=== PATIENT | female | born 1945 | race Caucasian/White ===

== ENCOUNTER 2017-02-27 09:50 | Day surgery (SDC) | payer MEDICARE, OTHER ==
[2017-02-23 12:59] LABS: HEMATOCRIT 39.6 % (36.0-48.0); HEMOGLOBIN 13.1 g/dL (12.0-16.0)
[2017-02-23 13:28] LABS: A/G RATIO 1.2 (0.7-1.9); ALBUMIN 3.9 G/DL (3.5-5.0); CALCIUM, SERUM 9.6 MG/DL (8.5-10.4); CHLORIDE, SERUM 106 MMOL/L (96-112); CO2 (CARBON DIOXIDE) 27 MMOL/L (24-34); CREATININE 0.88 MG/DL (0.55-1.02); GFR AFRICAN AMERICAN 77 ML/MIN (>=60); GFR NON AFRICAN AMERICAN 66 ML/MIN (>=60); GLOBULIN 3.2 G/DL (2.5-4.1); GLUCOSE, SERUM 96 MG/DL (60-99); POTASSIUM, SERUM 4.4 MMOL/L (3.5-5.3); SGOT(AST) 24 U/L (5-40); SGPT(ALT) 40 U/L (5-65); SODIUM, SERUM 140 MMOL/L (135-148); TOTAL BILIRUBIN 0.6 MG/DL (0-1.2); TOTAL PROTEIN 7.1 G/DL (6.0-8.5)
[2017-02-23 13:29] LABS: ALKALINE PHOSPHATASE 96 U/L (45-117); BUN (BLOOD UREA NITROGEN) 12 MG/DL (6-23)
--- NOTE | ~2017-02-27 | OP ---
Record Of Operation [facility] [address] [place]. [address] NAME: MARLEE ENGLAND : 45 STATUS : [facility]#: [id number] AGE: 71 ADM/REG DATE : 02/27/17 MR#: [id number] REPORT SERV DATE: 03/02/17 DICTATED BY: HARPREET QUARLES DATE: 03/01/17 REPORT STATUS : Draft TRANSCRIBED BY: MODL DATE: 03/01/17 DATE OF PROCEDURE: 02/27/2017 PREOPERATIVE DIAGNOSES: 1. Cholelithiasis. 2. Acute cholecystitis. 3. Biliary pancreatitis. SURGEON: Dr. Harpreet Quarles. RESIDENT SURGEON: Dr. Cisco Jansen. PROCEDURE: Laparoscopic cholecystectomy with intraoperative cholangiogram. ANESTHESIA: General. COMPLICATIONS: None. FLUID: Approximately 1 L. BLOOD LOSS: 10 mL. FINDINGS: Intraoperative cholangiogram showed ductal filling with no defects present and retrograde filling into the left and right hepatic duct. DESCRIPTION OF OPERATION: After informed consent was obtained, the patient was brought back to the operating suite and placed in the supine position. The patient was prepped and draped in normal sterile fashion after general endotracheal anesthesia. A transverse incision was made at the umbilicus. A 10-mm trocar with Optiview technique was used to gain access to the abdomen. The abdomen was insufflated. The patient tolerated the insufflation well. The camera was placed. There was no bleeding or damage to bowel or bladder. Three more 5-mm trocars were placed, one in subxiphoid, one in subcostal, and one in the right lower quadrant. The patient was placed in reverse Trendelenburg with left-side down. The gallbladder was grasped and elevated cranially and laterally. Adhesions of the omentum to the peritoneum and the gallbladder were dissected free sharply. The infundibulum of the gallbladder was then grasped and retracted laterally. A combination of sharp and blunt dissection were used to dissect out the cystic duct and cystic artery. Once the cystic duct was dissected free, was placed on the cystic duct at the cyst duct infundibular junction. A ductotomy was performed with Endoscissors. The duct was milked and one 2-mm stone was extracted. A cholangiocatheter was then placed within the cystic duct and under direct fluoroscopic visualization, a cholangiogram was performed. The cholangiogram showed no filling defects within the common bile duct all the way down to the duodenum. The duodenum filled well filling within the pancreatic duct. No stones were identified. The cholangiocatheter was then removed. The cystic duct was doubly clipped and divided. Cystic artery was doubly clipped and divided. Gallbladder was removed from the gallbladder fossa with hook electrocautery. Hemostasis was obtained. Record Of Operation [facility] [id number] [place]. [address] NAME: MARLEE ENGLAND : 45 STATUS : [facility]#: [id number] AGE: 71 ADM/REG DATE : 02/27/17 MR#: [id number] REPORT SERV DATE: 03/02/17 DICTATED BY: HARPREET QUARLES DATE: 03/01/17 REPORT STATUS : Draft TRANSCRIBED BY: ALONSO DATE: 03/01/17 Gallbladder was removed from the abdomen through the subxiphoid 10-mm trocar and the gallbladder fossa was visualized. There was no bleeding or bile. The remaining of the trocars were removed under direct visualization. The abdomen insufflation was released. The incisions were closed with 4-0 Monocryl. The patient tolerated the procedure well and transferred to recovery in stable condition. DICTATED BY: Cisco Jansen MD CB/ALONSO Harpreet Quarles M.D. / [id number] CC: Miles Glasgow M.D.
[~2017-02-27 09:50] MED LIST: ASAB PO; BYSTOLIC5 MG PO; CALTRA600D PO; VITAMIN B-121000 MC1 SL; ZANTAC150 MG PO; [UNRECOGNIZED DRUG - OTHER] PO
== END 2017-02-27 18:20 | disposition home or self-care (01) ==
LOC: SDC 09:50
PROVIDERS: Specialist
PROC: BF18YZZ Fluoroscopy of Pancreatic Ducts using Other Contrast (ICD-10-PCS; 2017-02-27)
PROC: 0FT44ZZ Resection of Gallbladder, Percutaneous Endoscopic Approach (ICD-10-PCS; principal; 2017-02-27 11:30)
DX: K80.10 Calculus of gallbladder with chronic cholecystitis without obstruction (principal); I10 Essential (primary) hypertension; K21.9 Gastro-esophageal reflux disease without esophagitis; K44.9 Diaphragmatic hernia without obstruction or gangrene; F41.9 Anxiety disorder, unspecified; F32.9 Major depressive disorder, single episode, unspecified; Z88.0 Allergy status to penicillin; Z88.2 Allergy status to sulfonamides; Z88.1 Allergy status to other antibiotic agents; Z96.1 Presence of intraocular lens; Z98.41 Cataract extraction status, right eye; Z98.42 Cataract extraction status, left eye; Z90.711 Acquired absence of uterus with remaining cervical stump; Z86.010 Personal history of colon polyps; Z85.3 Personal history of malignant neoplasm of breast; Z92.3 Personal history of irradiation; Z79.82 Long term (current) use of aspirin; Z79.899 Other long term (current) drug therapy
CPT/HCPCS: 74300; 80053; 85014; 85018; 88304; J0690; J1170; J2250; J2405; J2550; J2710; J3010; Q9967